=== PATIENT | female | born 1980 | race Two or more races ===

== ENCOUNTER 2024-10-04 10:22 | Emergency (ER) | payer OTHER ==
[~2024-10-04] VITALS: Ht 162.6 cm; Wt 72.6 kg
[2024-10-04] MEDS ORDERED: NEURONTIN300 MG PO (10:39)
[2024-10-04] MEDS ORDERED: PAXIL CR25 MG PO (10:39)
[2024-10-04] MEDS ORDERED: CLONAZEPAM2 M1 PO (10:40)
[2024-10-04 10:42] VITALS: BP 123/76; O2SAT 96
[2024-10-04] MEDS ORDERED: METOCLOPRAMIDE HCL 5 MG/ML VIAL IM STA (11:23)
[2024-10-04] MEDS ORDERED: 0.9 % SODIUM CHLORIDE 1,000 ML IV STA (11:24)
[2024-10-04] MEDS ORDERED: DIPHENOXYLATE HCL/ATROPINE 1 UDTAB TABLET PO STA (11:25)
[2024-10-04] MEDS ORDERED: FAMOtidine 10 MG/ML (4ML VIAL) IV PUSH STA (11:25)
[2024-10-04] MEDS ORDERED: HYOSCYAMINE SULFATE 0.125 MG TAB.SUBL ONE (11:30)
[2024-10-04] MEDS ORDERED: HYOSCYAMINE SULFATE 0.125 MG TAB.SUBL SL ONE (11:30)
[2024-10-04] MEDS ORDERED: FAMOTIDINE/PF 20 MG/2 ML VIAL ONE (11:31)
[2024-10-04] MEDS ORDERED: METOCLOPRAMIDE HCL 5 MG/ML VIAL ONE (11:31)
== END 2024-10-04 13:16 | disposition home or self-care (01) ==
LOC: ER 10:25
DX: K52.9 Noninfective gastroenteritis and colitis, unspecified (principal); Z88.2 Allergy status to sulfonamides